=== PATIENT | female | born 1960 | race Caucasian/White ===

== ENCOUNTER 2021-01-03 14:49 | Emergency (ER) | payer OTHER ==
--- OUTSIDE RECORDS SUMMARY | 2021-01-03 14:57 | XMS REPORT | Continuity of Care Document ---
:1960 Author Organization [facility] t Address [address] [place] [address] Care Team Providers Name Role Phone Phuc MARTINEZ Primary Care Physician Italia MARTINEZ Attending Clinician Payers Payer Name Policy Type Policy Number Effective Date Expiration Date S ource Problems Condition Condition Condition Status Onset Resolution Last Treating Co mments Source Name Details Category Date Date Treatment Clinician Date Other Problem Active 2021-01-03 Memor ia specified 02:00:22 l diseases Other [place] of liver specified diseases of liver Active Problem 01/03/2021 Elayne Phuc Cystic Problem Active 2021-01-03 Memor ia disease of 02:00:22 l liver Cystic [place] disease of liver Active Problem 01/03/2021 Elayne Phuc Acute Problem Active 2021-01-03 Memor ia frontal 02:00:22 l sinusitis, Acute [place] nn unspecifie frontal d sinusitis, unspecifie d Active Problem 01/03/2021 Elayne Phuc Chronic Problem Active 2021-01-03 Yoel carley kidney 02:00:22 l disease, Chronic [place] nn stage 3 kidney (moderate) disease, stage 3 (moderate) Active Problem 01/03/2021 Elayne Phuc Encounter Problem Active 2021-01-03 Me moria for 02:00:22 l screening [place] for other Encounter suspected for endocrine screening disorder for other suspected endocrine disorder Active Problem 01/03/2021 Elayne Phuc Headache Problem Active 2021-01-03 Mem oria 02:00:22 l Headache Abhinav n Active Problem 01/03/2021 Elayne Puhc Acute Problem Active 2021-01-03 Memor ia upper 02:00:22 l respirator Acute [place]a nn y upper infection, respirator unspecifie y d infection, unspecifie d Active Problem 01/03/2021 Elayne Friend Encounter Problem Active 2021-01-03 Me moria for 02:00:22 l screening [place] for Encounter cardiovasc for ular screening disorders for cardiovasc ular disorders Active Problem 01/03/2021 Elayne Friend Essential Problem Active 2021-01-03 Me moria (primary) 02:00:22 l hypertensi Abihnav n on Essential (primary) hypertensi on Active Problem Elayne Friend Spinal Problem Active 2021-01-03 Memor ia stenosis, 02:00:22 l lumbar Spinal [place] region stenosis, lumbar region Active Problem 01/03/2021 Elayne Acostao Low back Problem Active 2021-01-03 Mem oria pain 02:00:22 l Low back Abhinav n pain Active Problem 01/03/2021 Elayne Friend Generalize Problem Active 2021-01-03 M emoria d 02:00:22 l abdominal [place] pain Generalize d abdominal pain Active Problem 01/03/2021 Elayne Acostao Radiculopa Problem Active 2021-01-03 M emoria thy, 02:00:22 l thoracolum Abhinav n bar region Radiculopa thy, thoracolum bar region Active Problem 01/03/2021 Elayne Acostao Gastro-eso Problem Active 2021-01-03 M emoria phageal 02:00:22 l reflux Tomas disease Gastro-eso without phageal esophagiti reflux s disease without esophagiti s Active Problem 01/03/2021 Elayne Friend do not use Problem Active 2021-01-03 M emoria 02:00:22 l do not [place] use Active Problem 01/03/2021 Elayne Acostao Obesity, Problem Active 2021-01-03 Mem oria unspecifie 02:00:22 l d Obesity, Abhinav n unspecifie d Active Problem 01/03/2021 Elayne Friend Body mass Problem Active 2021-01-03 Me moria index 02:00:22 l (BMI) Body Tomas 37.0-37.9, mass index adult (BMI) 37.0-37.9, adult Active Problem 01/03/2021 Elaynealex Teixeiracko Encounter Problem Active 2021-01-03 Me moria for 02:00:22 l screening [place] mammogram Encounter for for malignant screening neoplasm mammogram of breast for malignant neoplasm of breast Active Problem 01/03/2021 Elaynealex Teixeiracko Encounter Problem Active 2021-01-03 Il moria for 02:00:22 l gynecologi Abhinav n alecia Encounter examinatio for n gynecologi (general) alecia (routine) examinatio without n abnormal (general) findings (routine) without abnormal findings Active Problem 01/03/2021 Elayne Teixeiracko Encounter Problem Active 2021-01-03 Il moria for 02:00:22 l screening [place] for Encounter cervical for cancer screening for cervical cancer Active Problem 01/03/2021 Elayne Phuc Acute Problem Active 2021-01-03 Memor ia sinusitis, 02:00:22 l unspecifie Acute Mila nn d sinusitis, unspecifie d Active Problem 01/03/2021 Elayne Phuc Chronic Problem Active 2021-01-03 Yoel carley kidney 02:00:22 l disease, Chronic Mila nn unspecifie kidney d disease, unspecifie d Active Problem 01/03/2021 Elayne Phuc Foraminal Problem Active 2021-01-03 Il moria stenosis 02:00:22 l of lumbar [place] region Foraminal stenosis of lumbar region Active Problem 01/03/2021 Elayne Phuc Pain in Problem Active 2021-01-03 Yoel carley right 02:00:22 l ankle and Pain in Herm bry joints of right right foot ankle and joints of right foot Active Problem 01/03/2021 Elayne Phuc Cough Problem Active 2021-01-03 Memor ia 02:00:22 l Cough Tomas Active Problem 01/03/2021 Elayne Phuc Lumbar Problem Active 2021-01-03 Memor ia radiculopa 02:00:22 l thy, Lumbar [place] chronic radiculopa thy, chronic Active Problem 01/03/2021 Elayne Phuc URI due to Problem Active 2021-01-03 M emoria influenza 02:00:22 l URI due Tomas to influenza Active Problem 01/03/2021 Elayne Friend Acute Problem Active 2021-01-03 Memor ia pharyngiti 02:00:22 l s, Acute [place] unspecifie pharyngiti d s, unspecifie d Active Problem 01/03/2021 Elayne Friend Body mass Problem Active 2021-01-03 Me moria index 02:00:22 l (BMI) Body [place] 35.0-35.9, mass index adult (BMI) 35.0-35.9, adult Active Problem 01/03/2021 Elayne Friend Tobacco Problem Active 2021-01-03 Yoel carley abuse 02:00:22 l counseling Tobacco [facility] abuse counseling Active Problem 01/03/2021 Elayne Friend Anxiety Problem Active 2021-01-03 Yoel carley 02:00:22 l Anxiety [place] Active Problem 01/03/2021 Elayne Friend Dyslipidem Problem Active 2021-01-03 M emoria ia 02:00:22 l [place] Dyslipidem ia Active Problem Elayne Friend Smoking Problem Active 2021-01-03 Yoel carley 02:00:22 l Smoking T[place] Active Problem 01/03/2021 Elayne Friend Encounter Problem Active 2021-01-03 Me moria for HCV 02:00:22 l screening [place] test for Encounter low risk for HCV patient screening test for low risk patient Active Problem 01/03/2021 Elayne Friend Encounter Problem Active 2021-01-03 Me moria for 02:00:22 l screening [place] for HIV Encounter for screening for HIV Active Problem 01/03/2021 Elayne Friend Encounter Problem Active 2021-01-03 Me moria for 02:00:22 l general [place] adult Encounter medical for examinatio general n without adult abnormal medical findings examinatio n without abnormal findings Active Problem 01/03/2021 Elayne Friend BMI Problem Active 2021-01-03 Memor ia 36.0-36.9, 02:00:22 l adult BMI [place] 36.0-36.9, adult Active Problem 01/03/2021 Elayne Friend Obstructiv Problem Active 2021-01-03 M emoria e sleep 02:00:22 l apnea T[place] (adult) Obstructiv (pediatric e sleep ) apnea (adult) (pediatric ) Active Problem 01/03/2021 Elayne Friend Flu Problem Active 2021-01-03 Memor ia vaccine 02:00:22 l need Flu T[place] vaccine need Active Problem 01/03/2021 Elayne Friend Rhinorrhea Problem Active 2021-01-03 M emoria 02:00:22 l [place] Rhinorrhea Active Problem 01/03/2021 Elayne Friend Acute Problem Active 2021-01-03 Memor ia bronchitis 02:00:22 l , Acute [place] unspecifie bronchitis d , unspecifie d Active Problem 01/03/2021 Elayne Friend Refuses Problem Active 2021-01-03 Yoel carley tetanus, 02:00:22 l diphtheria Refuses Her [facility] , and tetanus, acellular diphtheria pertussis , and (Tdap) acellular vaccinatio pertussis n (Tdap) vaccinatio n Active Problem 01/03/2021 Elayne Freind shingles Problem Active 2021-01-03 Mem oria vaccine 02:00:22 l refused shingles Mila nn vaccine refused Active Problem 01/03/2021 Elayne Firend Spinal Diagnosis Active 2019-01-23 Mem oria stenosis, 02:21:26 l site Spinal Tomas unspecifie stenosis, d site unspecifie d Active Diagnosis 01/23/2019 Elayne Friend Tobacco Diagnosis Active 2017-02-14 Me moria use 02:00:56 l Tobacco [place] use Active Diagnosis 02/14/2017 Elayne Friend Shortness Problem Active 2021-01-03 Me moria of breath 02:00:22 l [place] Shortness of breath Active Problem 01/03/2021 Elayne Friend Other Problem Active 2021-01-03 Memor ia obesity 02:00:22 l due to Other [place] excess obesity calories due to excess calories Active Problem 01/03/2021 Elayne Friend Encounter Problem Active 2021-01-03 Me moria for 02:00:22 l screening [place] for lipid Encounter disorder for screening for lipid disorder Active Problem 01/03/2021 Elayne Friend Chronic Problem Active 2021-01-03 Yoel carley pain 02:00:22 l disorder Chronic Mila nn pain disorder Active Problem 01/03/2021 Elayne Teixeiracko Diabetes Problem Active 2021-01-03 Mem oria mellitus 02:00:22 l screening Diabetes [facility] mellitus screening Active Problem 01/03/2021 Elayne Teixeiracko Abnormal Diagnosis Active 2017 M emoria mammogram 02:00:24 l Abnormal Abhinav n mammogram Active Diagnosis 2017 Elaynealex Teixeiracko Breast Diagnosis Active 2017 Mem oria pain 02:00:24 l Breast [place] pain Active Diagnosis 2017 Elayne Teixeiracko Acute Diagnosis Active 2019-02-05 Mem oria midline 02:01:06 l thoracic Acute [place] back pain midline thoracic back pain Active Diagnosis 02/05/2019 Elayne Teixeiracko Morbid Problem Active 2021-01-03 Memor ia obesity 02:00:22 l due to Morbid [place] excess obesity calories due to excess calories Active Problem 01/03/2021 Elaynealex Teixeiracko Chronic Problem Active 2021-01-03 Yoel carley kidney 02:00:22 l disease Chronic Abhinav n (CKD) kidney stage disease G3a/A1, (CKD) moderately stage decreased G3a/A1, glomerular moderately filtration decreased rate (GFR) glomerular between filtration 45-59 rate (GFR) mL/min/1.7 between 3 square 45-59 meter and mL/min/1.7 albuminuri 3 square a meter and creatinine albuminuri ratio less a than 30 creatinine mg/g ratio less than 30 mg/g Active Problem 01/03/2021 Elaynealex Teixeiracko Other Problem Active 2021-01-03 Memor ia chronic 02:00:22 l pain Other [place] chronic pain Active Problem 01/03/2021 Elaynealex Teixeiracko Pain in Problem Active 2021-01-03 Yoel carley right 02:00:22 l shoulder Pain in Mila nn right shoulder Active Problem 01/03/2021 Elayne Phuc Hypertensi Problem Active 2016-04-29 M emoria on 03:00:55 l [place] Hypertensi on Active Problem 6 Elayne Friend Primary Problem Active 2021-01-03 Yoel carley osteoarthr 02:00:22 l itis of Primary Abhinav n right osteoarthr shoulder itis of right shoulder Active Problem 01/03/2021 Elayne Friend Chest pain Problem Active 2021-01-03 M emoria made worse 02:00:22 l by Chest T[place] breathing pain made worse by breathing Active Problem 01/03/2021 Elayne Friend Calculus Problem Active 2021-01-03 Mem oria of kidney 02:00:22 l Calculus Abhinav n of kidney Active Problem 01/03/2021 Elayne Friend Allergies, Adverse Reactions, Alerts Allergy Allergy Status Severity Reaction(s) Onset Inactive Treating Comm ents Source Name Type Date Date Clinician Codeine Propensi Active GI Methodi ty to Intolerance 12-31 adverse 00:00: Hospita reaction 00 l s to drug Penicill Propensi Active Rash Method i ins ty to 12-31 adverse 00:00: Hospita reaction 00 l s to drug Penicill Penicill Active Info Not Yoel carley amine amine Available 6-08 l 00:00: [place] 00 Iodine Iodine Active Info Not Memoria Available 6-08 l 00:00: [place] 00 Codeine Codeine Active Info Not 2019-05 Memori a Sulfate Sulfate Available 0-05 l 00:00: [place] 00 Family History Family Member Diagnosis Comments Start Date Stop Date Source Maternal grandmother Coronary artery [facility] Natural mother [facility]physema [facility] Social History Social Habit Start Date Stop Date Quantity Comments Source Exposure to Not sure [facility] SARS-CoV-2 (event) Hospit al History of tobacco Cigarette Smoker [facility] use [facility] Cigarettes smoked 2020-12-31 2020-12-[address] current (pack per 00:00:00 00:00:00 Hospita l day) - Reported Tobacco use and 2020-12-31 2020-12-31 Never used [facility] exposure 00:00:00 00:00:00 Hospital Alcohol intake 2020-12-31 2020-12-31 Current drinker [facility]o dist 00:00:00 00:00:00 of alcohol Hospital (finding) Tobacco Comment 2020-12-31 2020-12-31 Has tried quiting [facility] 00:00:00 00:00:00 with patches. Hospital Alcohol Comment 2020-12-31 2020-12-31 Seldom [facility] 00:00:00 00:00:00 Hospital UseDrugs: 2016-07-06 2016-07-06 [facility] 00:00:00 00:00:00 [birth year] [facility] 00:00:00 00:00:00 Hospital Smoking Status Start Date Stop Date Source Current every day smoker 2020-12-31 00:00:00 [facility] Medications Ordered Filled Start Stop Current Ordering Indication Dosage Frequency Signature Comments Components Source Medication Medication Date Date Medication? Clinician (SIG) Name Name Metoprolol Yes ELAYNE 1 tablet Me moria Tartrate 8-16 PHUC as needed l 02:01: [place] 14 Diovan Yes ELAYNE 1 tablet Memori a 8-16 PHUC l 02:01: T[place] 14 Zetia Yes ELAYNE 1 tablet Memoria 8-16 PHUC l 02:01: Omeprazole Yes ELAYNE 1 capsule M emoria 8-16 PHUC l 02:01: [place] Breo Yes ELAYNE 1 puff Memoria Ellipta 6-22 PHUC l 00:00: Baclofen 0 Yes ELAYNE 1 tablet Yoel carley 6-08 PHUC as needed l 00:00: 00 Baclofen 0 Yes ELAYNE 1 tablet Yoel carley 1-04 PHUC with food l 00:00: or milk Contrave 2019-1 Yes ELAYNE 1 tab(s) Yoel carley 2-04 PHUC l 00:00: Zetia 2019-1 Yes ELAYNE 1 tablet Memoria 0-07 PHUC l 02:01: [place] 49 Omeprazole 2019-1 Yes ELAYNE 1 capsule M emoria 0-07 PHUC l 02:01: [place] 49 Tramadol 2019-0 Yes ELAYNE 1 tablet Yoel carley HCl 6-03 PHUC as needed l 00:00: 00 Omeprazole 2019-0 Yes ELAYNE 1 capsule M emoria 5-05 PHUC l 02:05: [place] 59 Diovan 2019-0 Yes ELAYNE 1 tablet Memori a 2-05 PHUC l 03:01: [place] 18 Imitrex 2019-0 Yes ELAYNE 1 tablet Memor ia 2-05 PHUC as needed l 03:01: Guaifenesin 2020-0 Yes ELAYNE 1 tablet M emoria 1-03 PHUC as needed l 00:00: Chantix 2020-0 Yes ELAYNE as Memoria Starting 1-03 PHUC directed l Month Lefty 00:00: Zithromax 2020-0 Yes ELAYNE as Memoria Z-Lefty 1-03 PHUC directed l 00:00: Tramadol 2020-0 Yes ELAYNE 2 tablet Yoel carley HCl 1-03 PHUC as needed l 00:00: Tramadol 2019-1 Yes ELAYNE 2 tablet Yoel carley HCl 2-04 PHUC as needed l 00:00: Ventolin 2019-1 Yes ELAYNE 2 puffs as Me moria HFA 1-04 PHUC needed l 00:00: Levofloxaci 2019-1 Yes ELAYNE 1 tablet M emoria n 1-04 PHUC l 00:00: Tramadol 2019-1 Yes ELAYNE 2 tablet Yoel carley HCl 0-04 PHUC as needed l 00:00: Benzonatate 2019-1 Yes ELAYNE 1 capsule Memoria 0-04 PHUC as needed l 00:00: Tramadol 2019-0 Yes ELAYNE 1 tablet Yoel carley HCl 9-25 PHUC as needed l 02:13: Trazodone 2019-0 Yes ELAYNE 1 tablet Mem oria HCl 7-26 PHUC l 00:00: Trazodone 2019-0 Yes ELAYNE 1 tablet Mem oria HCl 7-26 PHUC l 00:00: Mucinex D 2018-1 Yes R 2 tablets Mem oria 1-06 Zinactive as needed l 00:00: Cold & 2018-1 Yes R 1 tablet Memoria Allergy 1-06 Zinactive as needed l 00:00: Gabapentin 2018-1 Yes ELAYNE 1 capsule M emoria 1-06 PHUC l 00:00: Gabapentin 2018-1 Yes ELAYNE 1 capsule M emoria 1-06 PHUC l 00:00: Tramadol 2018-1 Yes R one tab Memori a 1-06 Zinactive l 00:00: Claritin 2018- Yes R 1 tablet Memor ia 1-06 Zinactive l 00:00: Gabapentin 2018-0 Yes ELAYNE 1 capsule M emoria 8-09 PHUC l 00:00: Tramadol 2018-0 Yes JYOTIBEN one tab Me moria 7-13 CHOWDHURY l 00:00: Gabapentin 2018-0 Yes JYOTIBEN 1 capsule Memoria 7-02 CHOWDHURY l 02:01: Zyban 2018-0 Yes ELAYNE 1 tab Memoria 6-13 PHUC l 00:00: Zyban 2018-0 Yes ELAYNE 1 tab Memoria 6-13 PHUC l 00:00: REFERRAL TO 2018-0 Yes JYOTIBEN as Me moria NEUROLOGIST 1-06 [facility]OW[facility] directed l 03:04: Tramadol 2016-05 Yes JYOTIBEN one tab Me moria 1-09 [facility]OWDHURY l 00:00: Diovan 2016-05 Yes JYOTIBEN 1 tablet Mem oria 0-16 CHOWDHURY l 02:06: Metoprolol 2016-05 Yes JYOTIBEN 1 tablet Memoria Tartrate 0-16 [facility]OWDHURY as needed l 02:06: Gabapentin 2016-05 Yes JYOTIBEN 1 capsule Memoria 0-16 CHOWDHURY l 02:06: Imitrex 2016-05 Yes JYOTIBEN 1 tablet Me moria 0-16 [facility]OW[facility]URY as needed l 02:06: Zetia 2016-05 Yes JYOTIBEN 1 tablet Yoel carley 0-16 CHOWDHURY l 02:06: Omeprazole 2016-05 Yes JYOTIBEN 1 capsule Memoria 0-16 [facility]OW[facility]URY l 02:06: Claritin 2016-05 Yes JYOTIBEN 1 tablet M emoria 0-10 CHOW[facility]URY l 00:00: Zithromax 2016-05 Yes JYOTIBEN 2 tablets Memoria Z-Lefty 0-10 CHOWDHURY on the l 00:00: first day, then 1 tablet daily for 4 days Mucinex 2016-05 Yes JYOTIBEN 1 tablet Me moria 0-10 [facility]OW[facility]Y as needed l 00:00: Tramadol 2017-0 Yes JYOTIBEN one tab Me moria 9-02 [facility]OW[facility]URY l 00:00: Tramadol 2017-0 Yes JYOTIBEN 1 tablet M emoria HCl 7-08 CHOWDHURY l 02:05: 46 Imitrex 2017-0 Yes JYOTIBEN 1 tablet Me moria 6-06 [facility]OW[facility]Y as needed l 00:00: Amitriptyli 2017-0 Yes JYOTIBEN 1 tablet Memoria ne HCl 3-30 [facility]OW[facility]URY l 00:00: Zetia 2017-0 Yes JYOTIBEN 1 tablet Yoel carley 3-30 CHOWDHURY l 00:00: REFERRAL TO 0 Yes JYOTIBEN as Me moria NEUROLOGIST 3-30 [facility]OW[facility]Y directed l 00:00: ProAir HFA 0 Yes JYOTIBEN 2 puffs as Memoria 3-07 [facility]OW[facility]URY needed l 00:00: Biaxin 2017-0 Yes JYOTIBEN 1 tablet Mem oria 3-07 COHWDHURY l 00:00: Mucinex 2017-0 Yes JYOTIBEN 1 tablet Me moria 3-07 CHOW[facility]URY as needed l 00:00: Tessalon 2017-0 Yes JYOTIBEN 1 capsule Memoria Perles 3-07 [facility]OW[facility]URY as needed l 00:00: ProAir HFA 0 Yes JYOTIBEN 2 puffs as Memoria 3-07 [facility]OWDHURY needed l 00:00: REFERRAL TO 0 Yes JYOTIBEN as Me moria PAIN 1-03 [facility]OW[facility]Y directed l MANAGMENT 00:00: REFERRAL TO 0 Yes JYOTIBEN as Me moria GASTROENTER 8-03 [facility]OW[facility]Y directed l OLOGY 00:00: REFER 0 Yes JYOTIBEN as Memoria PATIENT TO 8-03 [facility]OW[facility] directed l UROLOGY 00:00: Omeprazole 2015-0 Yes JYOTIBEN 1 capsule Memoria 7-19 [facility]OW[facility]Y l 00:00: Refer 2015-0 Yes JYOTIBEN as Memoria Patient to 4-06 [facility]OW[facility]Y directed l pain 00:00: Orthopedics 0 Yes JYOTIBEN as Me moria consult and 4-06 [facility]OW[facility]Y directed l referral 00:00: 00 Refer 2015-1 Yes JYOTIBEN as Memoria Patient to 2-18 [facility]OW[facility]Y directed l pain 00:00: Tomas management 00 Diovan 2015-0 Yes JYOTIBEN 1 tablet Mem oria 9-30 [facility]OWDHURY l 00:00: Tramadol 2015-0 Yes JYOTIBEN 1 tablet M emoria HCl 9-30 [facility]OWDHURY l 00:00: Gabapentin 2015-0 Yes JYOTIBEN 1 capsule Memoria 9-30 [facility]OW[facility]URY l 00:00: 00 Metoprolol 2014-0 Yes JYOTIBEN 1 tablet Memoria Tartrate 9-30 [facility]OW[facility]URY as needed l 00:00: 00 Immunizations Ordered Immunization Filled Immunization Date Status Commen ts Source Name Name Influenza 2020-01-04 Completed [facility] 00:00:00 [place] FLU VACCINE NO 2019-03-05 Completed [facility] PRESERV 3 & > 00:00:00 [place] Vital Signs Vital Name Observation Time Observation Value Comments Source Heart rate 2020-12-31 12:45:00 49 /min [facility] Respiratory rate 2020-12-31 12:45:00 15 /min [facility] Oxygen saturation in 2020-12-31 12:45:00 98 /[facility] Arterial blood by Pulse oximetry Systolic blood 2020-12-31 12:30:00 163 mm[Hg] [facility] pressure Diastolic blood 2020-12-31 12:30:00 80 mm[Hg] [facility] pressure Body temperature 2020-12-31 10:38:00 36.33 [facility]ol [facility] Body height 2020-12-31 10:35:00 160 cm [facility] Body weight 2020-12-31 10:35:00 90.719 kg [facility] BMI 2020-12-31 10:35:00 35.43 kg/m2 [facility] Diastolic (mm Hg) 2020-10-27 15:00:00 [facility] Systolic (mm Hg) 2020-10-27 [facility]:00[facility] 2020-10-27 15:00:00 98.5 F [facility] Heart Rate 2020-10-27 15:00:00 [facility] Diastolic (mm Hg) 2020-10-07 21:15:00 Mem orial [place] Systolic (mm Hg) 2020-10-07 21:15:00 Yoel rial [place] Temperature Oral (F) 2020-10-07 21:15:00 98.1 F [facility] Weight 2020-10-07 21:15:00 [facility] Heart Rate 2020-10-07 21:15:00 [facility] [place] Diastolic (mm Hg) 2020-05-05 18:30:00 Mem orial [place] Systolic (mm Hg) 2020-05-05 18:30:00 Yoel rial [place] Temperature Oral (F) 2020-05-05 18:30:00 98.5 F [facility] Heart Rate 2020-05-05 18:30:00 [facility] Diastolic (mm Hg) 2020-04-04 22:00:00 Mem orial [place] Systolic (mm Hg) 2020-04-04 22:00:00 Yoel rial [place] Temperature Oral (F) 2020-04-04 22:00:00 98.0 F [facility] Weight 2020-04-04 22:00:00 [facility] [place] Heart Rate 2020-04-04 22:00:00 [facility] [place] Diastolic (mm Hg) 2020-02-04 21:30:00 Mem orial [place] Systolic (mm Hg) 2020-02-04 21:30:00 Yoel rial [place] Temperature Oral (F) 2020-02-04 21:30:00 98.0 F [facility] Weight 2020-02-04 21:30:00 [facility] [place] Heart Rate 2020-02-04 21:30:00 [facility] Diastolic (mm Hg) 2020-01-04 17:45:00 Mem orial [place] Systolic (mm Hg) 2020-01-04 17:45:00 Yoel rial [place] Temperature Oral (F) 2020-01-04 17:45:00 98.0 F [facility] Weight 2020-01-04 17:45:00 [facility] Heart Rate 2020-01-04 17:45:00 [facility] [place] Diastolic (mm Hg) 2019-10-04 21:15:00 Mem orial [place] Systolic (mm Hg) 2019-10-04 21:15:00 Yoel rial [place] Temperature Oral (F) 2019-10-04 21:15:00 98.0 F [facility] Weight 2019-10-04 21:15:00 [facility] [place] Heart Rate 2019-10-04 21:15:00 [facility] Diastolic (mm Hg) 2019-09-03 20:30:00 Mem orial [place] Systolic (mm Hg) 2019-09-03 20:30:00 Yoel rial [place] Temperature Oral (F) 2019-09-03 20:30:00 96.4 F [facility] Weight 2019-09-03 20:30:00 [facility] [place] Heart Rate 2019-09-03 20:30:00 [facility] [place] Diastolic (mm Hg) 2019-06-04 21:30:00 Mem orial [place] Systolic (mm Hg) 2019-06-04 21:30:00 Yoel rial [place] Temperature Oral (F) 2019-06-04 21:30:00 98.2 F [facility] Weight 2019-06-04 21:30:00 [facility] [place] Heart Rate 2019-06-04 21:30:00 [facility] [place] Diastolic (mm Hg) 2019-05-04 20:00:00 Mem orial [place] Systolic (mm Hg) 2019-05-04 20:00:00 Yoel rial [place] Temperature Oral (F) 2019-05-04 20:00:00 98.2 F [facility] Weight 2019-05-04 20:00:00 [facility] [place] Heart Rate 2019-05-04 20:00:00 [facility] Diastolic (mm Hg) 2019-04-04 22:00:00 Mem orial [place] Systolic (mm Hg) 2019-04-04 22:00:00 Yoel rial [place] Temperature Oral (F) 2019-04-04 22:00:00 98.0 F [facility] [place] Weight 2019-04-04 22:00:00 [facility] Heart Rate 2019-04-04 22:00:00 [facility] [place] Diastolic (mm Hg) 2019-03-13 21:45:00 Mem orial [place] Systolic (mm Hg) 2019-03-13 21:45:00 Yoel rial [place] Temperature Oral (F) 2019-03-13 21:45:00 98.0 F [facility] [place] Weight 2019-03-13 21:45:00 [facility] [place] Heart Rate 2019-03-13 21:45:00 [facility] [place] Diastolic (mm Hg) 2019-03-05 21:30:00 Mem orial [place] Systolic (mm Hg) 2019-03-05 21:30:00 Yoel rial [place] Temperature Oral (F) 2019-03-05 21:30:00 98.2 F [facility] [place] Weight 2019-03-05 21:30:00 [facility] [place] Heart Rate 2019-03-05 21:30:00 [facility] Diastolic (mm Hg) 2019-02-02 21:00:00 Mem orial [place] Systolic (mm Hg) 2019-02-02 21:00:00 Yoel rial [place] Temperature Oral (F) 2019-02-02 21:00:00 98.1 F [facility] Weight 2019-02-02 21:00:00 [facility] [place] Heart Rate 2019-02-02 21:00:00 [facility] [place] Diastolic (mm Hg) 2019-01-08 21:15:00 Mem orial [place] Systolic (mm Hg) 2019-01-08 21:15:00 Yoel rial [place] Temperature Oral (F) 2019-01-08 21:15:00 98.1 F [facility] Weight 2019-01-08 21:15:00 [facility] [place] Heart Rate 2019-01-08 21:15:00 [facility] [place] Diastolic (mm Hg) 2018-04-13 20:00:00 Mem orial [place] Systolic (mm Hg) 2018-04-13 20:00:00 Yoel rial [place] Temperature Oral (F) 2018-04-13 20:00:00 98.2 F [facility] Weight 2018-04-13 20:00:00 [facility] [place] Heart Rate 2018-04-13 20:00:00 [facility] [place] Diastolic (mm Hg) 2018-03-07 20:00:00 Mem orial [place] Systolic (mm Hg) 2018-03-07 20:00:00 Yoel rial [place] Temperature Oral (F) 2018-03-07 20:00:00 98.0 F [facility] Weight 2018-03-07 20:00:00 [facility] [place] Heart Rate 2018-03-07 20:00:00 [facility] [place] Diastolic (mm Hg) 2017-10-28 16:15:00 Mem orial [place] Systolic (mm Hg) 2017-10-28 16:15:00 Yoel rial [place] Temperature Oral (F) 2017-10-28 16:15:00 98.0 F [facility] [place] Weight 2017-10-28 16:15:00 [facility] [place] Heart Rate 2017-10-28 16:15:00 [facility] [place] Diastolic (mm Hg) 2017-10-12 17:45:00 Mem orial [place] Systolic (mm Hg) 2017-10-12 17:45:00 Yoel rial [place] Temperature Oral (F) 2017-10-12 17:45:00 97.9 F [facility] [place] Weight 2017-10-12 17:45:00 [facility] Heart Rate 2017-10-12 17:45:00 [facility] Diastolic (mm Hg) 2017-02-08 21:30:00 [facility] Systolic (mm Hg) 2017-02-08 21:30:00 [facility] Temperature Oral (F) 2017-02-08 21:30:00 97.9 F [facility] Weight 2017-02-08 21:30:00 [facility] Heart Rate 2017-02-08 21:30:00 [facility] Diastolic (mm Hg) 2016-12-09 17:00:00 [facility] Systolic (mm Hg) 2016-12-09 17:00:00 [facility] Temperature Oral (F) 2016-12-09 17:00:00 98.0 F [facility] Weight 2016-12-09 17:00:00 [facility] Heart Rate 2016-12-09 17:00:00 [facility] Diastolic (mm Hg) 2016-12-02 17:00:00 [facility] Systolic (mm Hg) 2016-12-02 17:00:00 [facility] Temperature Oral (F) 2016-12-02 17:00:00 97.9 F [facility] Weight 2016-12-02 17:00:00 [facility] Rate 2016-12-02 17:00:00 [facility] Diastolic (mm Hg) 2016-10-05 17:15:00 [facility] Systolic (mm Hg) 2016-10-05 17:15:00 [facility] Temperature Oral (F) 2016-10-05 17:15:00 98.0 F [facility] Weight 2016-10-05 17:15:00 [facility] Heart Rate 2016-10-05 17:15:00 [facility] Diastolic (mm Hg) 2016-07-29 20:30:00 [facility] Systolic (mm Hg) 2016-07-29 20:30:00 [facility] Temperature Oral (F) 2016-07-29 20:30:00 98.0 F [facility] Weight 2016-07-29 20:30:00 [facility] Heart Rate 2016-07-29 20:30:00 [facility] Diastolic (mm Hg) 2016-07-06 18:15:00 [facility] Systolic (mm Hg) 2016-07-06 18:15:00 [facility] Temperature Oral (F) 2016-07-06 18:15:00 98.0 F [facility] Weight 2016-07-06 18:15:00 [facility] Heart Rate 2016-07-06 18:15:00 [facility] Diastolic (mm Hg) 2016-05-04 19:30:00 [facility] Systolic (mm Hg) 2016-05-04 19:30:00 [facility] Temperature Oral (F) 2016-05-04 19:30:00 98.0 F [facility] Weight 2016-05-04 19:30:00 [facility] Heart Rate 2016-05-04 19:30:00 [facility] Procedures Procedure Date / Time Performing Clinician Source Performed ECG ED PRELIMINARY 2020-12-31 13:25:50 [facility] INTERPRETATION TROPONIN 2020-12-31 13:13:00 [facility] Daniel XR CHEST 1 VW PORTABLE 2020-12-31 12:36:26 [facility] Daniel HC COMPLETE BLD COUNT 2020-12-31 10:47:00 [facility] W/AUTO DIFF Christopher COMPREHENSIVE METABOLIC 2020-12-31 10:47:00 [facility] PANEL Christopher TROPONIN 2020-12-31 10:47:00 [facility] NATRIURET[facility] PEPTIDE 2020-12-31 10:47:00 [facility] Christjeremyer PARTIAL THROMBOPLASTIN 2020-12-31 10:47:00 [facility] TIME (PTT) [place] PROTHROMBIN TIME WITH INR 2020-12-31 10:47:00 [facility] Christopher ESTIMATED GFR 2020-12-31 10:47:00 [facility] ECG 12-LEAD 2020-12-31 10:39:08 [facility] Plan of Care Planned Activity Planned Date Details Comments Source Future Scheduled Test COVID-19 VACCINE (1) [facility] [code = COVID-19 VACCINE (1)] Future Scheduled Test Hepatitis C screening [facility] (procedure) [code = 286846582] Future Scheduled Test Screening for malignant [facility] neoplasm of cervix (procedure) [code = 427350495] Future Scheduled Test BREAST CANCER SCREENING [facility] [code = BREAST CANCER SCREENING] Future Scheduled Test COLONOSCOPY SCREENING [facility] [code = COLONOSCOPY SCREENING] Future Scheduled Test SHINGLES VACCINES (#1) [facility] [code = SHINGLES VACCINES (#1)] Future Scheduled Test INFLUENZA VACCINE [code [facility] = INFLUENZA VACCINE] Encounters Start End Encounter Admission Attending Care Care Encounter Source Date/Time Date/Time Type Type Clinicians Facility Department ID 2020-12-31 2020-12-31 Outpatient [facility] [id number] eClinic 15:09:00 15:09:00 AND AGING AGING [facility] 2020-12-31 2020-12-31 Emergency [facility], 1.2.840.1 [id number] Methodi 06:29:00 09:31:[address] 3.430.2.7 Hospit a .3.321369 l .8 2020-12-31 2020-12-31 Emergency [facility] [id number] [place] [address] 00:00:00 00:00:[address] [facility] [address] 2020-12-31 2020-12-31 Travel 1.2.840.1 [id number] Methodi 00:00:00 00:00:[address] 3.430.2.7 0.2.7.3.698 [facility] .3.480853 084.8 l .8 2020-10-27 2020-10-27 Outpatient [facility] [id number] eClinic 10:00:00 10:00:00 AND AGING AGING [facility] 2020-10-07 2020-10-07 Outpatient Elayne Holly [id number] eClinic 16:15:00 16:15:00 Phuc brown M.D P.A P.A 2020-10-06 2020-10-06 Outpatient [facility] [id number] eClinic 10:38:00 10:38:00 AND AGING AGING [facility] 2020-06-13 2020-06-13 Outpatient Elayne Holly [id number] eClinic 13:29:00 13:29:00 Phuc brown M.D P.A P.A 2020-06-12 2020-06-12 Outpatient [facility] [id number] eClinic 18:31:00 18:31:00 AND AGING AGING [facility] 2020-05-05 2020-05-05 Outpatient Elayne Holly [id number] eClinic 12:30:00 12:30:00 Phuc brown M.D P.A P.A 2020-04-13 2020-04-13 Outpatient Elayne Holly [id number] eClinic 08:47:00 08:47:00 Phuc brown M.D P.A P.A 2020-04-13 2020-04-13 Outpatient Elayne Holly [id number] eClinic 08:47:00 08:47:00 Phuc brown M.D P.A P.A 2020-04-13 2020-04-13 Outpatient Elaynealex Holly [id number] eClinic 08:44:00 08:44:00 Phuc brown M.D P.A P.A 2020-04-13 2020-04-13 Outpatient Elayne Elayne [id number] eClinic 08:44:00 08:44:00 Phuc brown M.D P.A P.A 2020-04-04 2020-04-04 Outpatient Elayne Holly [id number] eClinic 16:00:00 16:00:00 Phuc brown M.D P.A P.A 2020-02-04 2020-02-04 Outpatient Elayne Holly [id number] eClinic 16:30:00 16:30:00 Phuc brown M.D P.A P.A 2020-01-04 2020-01-04 Outpatient Elayne Holly [id number] eClinic 13:00:00 13:00:00 Phuc brown M.D P.A P.A 2020-01-04 2020-01-04 Outpatient Elayne Holly [id number] eClinic 12:45:00 12:45:00 Phuc brown M.D P.A P.A 2019-12-20 2019-12-20 Outpatient Elaynealex Holly [id number] eClinic 11:32:00 11:32:00 Phuc brown M.D P.A P.A 2019-10-04 2019-10-04 Outpatient [facility] [id number] eClinic 16:15:00 16:15:00 AND AGING AGING [facility] 2019-09-03 2019-09-03 Outpatient [facility] [id number] eClinic 15:30:00 15:30:00 AND AGING AGING [facility] 2019-06-29 2019-06-29 Outpatient Elayne Holly [id number] eClinic 04:21:00 04:21:00 Phuc brown M.D P.A P.A 2019-06-14 2019-06-14 Outpatient Elayne Holly [id number] eClinic 09:23:00 09:23:00 Phuc brown M.D P.A P.A 2019-06-04 2019-06-04 Outpatient Elayne Holly [id number] eClinic 15:30:00 15:30:00 Phuc brown M.D P.A P.A 2019-05-27 2019-05-27 Outpatient Elaynealex Holly [id number] eClinic 13:53:00 13:53:00 Phuc brown M.D P.A P.A 2019-05-27 2019-05-27 Outpatient Elaynealex Holly [id number] eClinic 13:53:00 13:53:00 Phuc brown M.D P.A P.A 2019-05-06 2019-05-06 Outpatient Elayne Holly [id number] eClinic 18:27:00 18:27:00 Phuc brown M.D P.A P.A 2019-05-04 2019-05-04 Outpatient Elayne Holly [id number] eClinic 14:14:00 14:14:00 Phuc brown M.D P.A P.A 2019-05-04 2019-05-04 Outpatient Elaynealex Holly [id number] eClinic 14:02:00 14:02:00 Phuc brown M.D P.A P.A 2019-05-04 2019-05-04 Outpatient Elaynealex العليna [id number] eClinic 14:00:00 14:00:00 Phuc brown M.D P.A P.A 2019-04-04 2019-04-04 Outpatient Elayne Elayne [id number] eClinic 16:00:00 16:00:00 Phuc brown M.D P.A P.A 2019-03-18 2019-03-18 Outpatient Elayne Elayne [id number] eClinic 09:09:00 09:09:00 Phuc brown M.D P.A P.A 2019-03-13 2019-03-13 Outpatient Elayne Elayne [id number] eClinic 15:45:00 15:45:00 Phuc brown M.D P.A P.A 2019-03-13 2019-03-13 [facility] [id number] eClinic 15:45:00 15:45:00 Phuc brown M.D P.A P.A 2019-03-05 2019-03-05 [facility] [id number] eClinic 15:45:00 15:45:00 Phuc brown M.D P.A P.A 2019-03-05 2019-03-05 [facility] [id number] eClinic 15:30:00 15:30:00 Phuc brown M.D P.A P.A 2019-02-04 2019-02-04 [facility] [id number] eClinic 19:54:00 19:54:00 Phuc brown M.D P.A P.A 2019-02-02 2019-02-02 [facility] [id number] eClinic 16:00:00 16:00:00 Phuc brown M.D P.A P.A 2019-02-02 2019-02-02 [facility] [id number] eClinic 15:57:00 15:57:00 Phuc brown M.D P.A P.A 2019-02-02 2019-02-02 [facility] [id number] eClinic 15:30:00 15:30:00 Phuc brown M.D P.A P.A 2019-01-09 2019-01-09 [facility] [id number] eClinic 23:28:00 23:28:00 Phuc brown M.D P.A P.A 2019-01-09 2019-01-09 [facility] [id number] eClinic 23:27:00 23:27:00 Phuc brown M.D P.A P.A 2019-01-09 2019-01-09 [facility] [id number] eClinic 06:52:00 06:52:00 Phuc brown M.D P.A P.A 2019-01-08 2019-01-08 Outpatient Elayne Holly [id number] eClinic 16:15:00 16:15:00 Phuc brown M.D P.A P.A 2019-01-04 2019-01-04 Outpatient Elayne Holly [id number] eClinic 14:17:00 14:17:00 Phuc brown M.D P.A P.A 2018-11-24 2018-11-24 Outpatient Elayne Holly [id number] eClinic 13:54:00 13:54:00 Phuc brown M.D P.A P.A 2018-10-26 2018-10-26 Outpatient Elayne Holly [id number] eClinic 13:53:00 13:53:00 Phuc brown M.D P.A P.A 2018-09-26 2018-09-26 Outpatient [facility]ILY AND [id number] eClinic 16:01:00 16:01:00 AND AGING AGING [facility] 2018-09-20 2018-09-20 Outpatient Elayne Holly [id number] eClinic 16:11:00 16:11:00 Phuc brown M.D P.A P.A 2018-08-22 2018-08-22 Outpatient Elayne Holly [id number] eClinic 13:00:00 13:00:00 Phuc brown M.D P.A P.A 2018-08-21 2018-08-21 Outpatient Elaynealex Holly [id number] eClinic 14:31:00 14:31:00 Phuc brown M.D P.A P.A 2018-08-15 2018-08-15 Outpatient [facility] AND [id number] eClinic 09:20:00 09:20:00 AND AGING AGING [facility] 2018-07-27 2018-07-27 Outpatient Elayne Holly [id number] eClinic 12:27:00 12:27:00 Phuc brown M.D P.A P.A 2018-06-13 2018-06-13 Outpatient Elayne Holly [id number] eClinic 12:51:00 12:51:00 Phuc brown M.D P.A P.A 2018-06-13 2018-06-13 Outpatient Elayne Holly [id number] eClinic 12:50:00 12:50:00 Phuc brown M.D P.A P.A 2018-05-29 2018-05-29 Outpatient Elayne Holly [id number] eClinic 14:55:00 14:55:00 Phuc brown M.D P.A P.A 2018-04-13 2018-04-13 Outpatient Elayne Holly [id number] eClinic 15:00:00 15:00:00 Phuc brown M.D P.A P.A 2018-03-07 2018-03-07 Outpatient Elayne Holly [id number] eClinic 15:00:00 15:00:00 Phuc brown M.D P.A P.A 2018-03-02 2018-03-02 Outpatient [facility] [id number] eClinic 20:41:00 20:41:00 AND AGING AGING [facility] 2017-12-08 2017-12-08 Outpatient Elayne Holly [id number] eClinic 09:13:00 09:13:00 Phuc brown M.D P.A P.A 2017-11-18 2017-11-18 Outpatient Elayne Holly [id number] eClinic 11:50:00 11:50:00 Phuc brown M.D P.A P.A 2017-10-28 2017-10-28 Outpatient Elayne Holly [id number] eClinic 11:15:00 11:15:00 Phuc brown M.D P.A P.A 2017-10-12 2017-10-12 Outpatient Elayne Holly [id number] eClinic 12:45:00 12:45:00 Phuc brown M.D P.A P.A 2017-10-06 2017-10-06 Outpatient [facility] [id number] eClinic 14:03:00 14:03:00 Phuc brown M.D P.A P.A 2017-02-11 2017-02-11 Outpatient [facility] [id number] eClinic 16:25:00 16:25:00 Phuc brown M.D P.A P.A 2017-02-08 2017-02-08 Outpatient [facility] [id number] eClinic 15:30:00 15:30:00 Phuc brown M.D P.A P.A 2017-02-05 2017-02-05 Outpatient [facility] [id number] eClinic 08:56:00 08:56:00 Phuc brown M.D P.A P.A 2017-02-03 2017-02-03 Outpatient [facility] [id number] eClinic 20:17:00 20:17:00 Phuc brown M.D P.A P.A 2017-02-02 2017-02-02 Outpatient [facility] [id number] eClinic 07:49:00 07:49:00 Phuc brown M.D P.A P.A 2016-12-09 2016-12-09 Outpatient [facility] [id number] eClinic 12:00:00 12:00:00 Phuc brown M.D P.A P.A 2016-12-02 2016-12-02 Outpatient [facility] [id number] eClinic 15:52:00 15:52:00 Phuc brown M.D P.A P.A 2016-12-02 2016-12-02 Outpatient [facility] [id number] eClinic 12:00:00 12:00:00 Phuc brown M.D P.A P.A 2016-11-26 2016-11-26 Outpatient [facility] [id number] eClinic 09:47:00 09:47:00 Phuc brown M.D P.A P.A 2016-10-07 2016-10-07 Outpatient Elayne Elayne [id number] eClinic 20:50:00 20:50:00 Phuc brown M.D P.A P.A 2016-10-05 2016-10-05 Outpatient Elayne Elayne [id number] eClinic 12:15:00 12:15:00 Phuc brown M.D P.A P.A 2016-10-02 2016-10-02 Outpatient Elayne Elayne [id number] eClinic 12:42:00 12:42:00 Phuc rbown M.D P.A P.A 2016-07-29 2016-07-29 Outpatient Elayne Elayne [id number] eClinic 15:30:00 15:30:00 Phuc brown M.D P.A P.A 2016-07-06 2016-07-06 appointmen nullFlavo Elayne [id number] [facility] 14:03:00 14:03:00 reza Friend MD [id number] Mila traylor [id number] 2016-07-06 2016-07-06 Outpatient Elayne Elayne [id number] eClinic 13:15:00 13:15:00 Phuc brown M.D P.A P.A 2016-07-06 2016-07-06 Outpatient Elayne Elayne [id number] eClinic 08:03:00 08:03:00 Phuc Friend MD alW orks MD 2016-05-04 2016-05-04 Outpatient Elayne Elayne [id number] eClinic 14:30:00 14:30:00 Phuc brown M.D P.A P.A 2016-04-28 2016-04-28 appointmen nullFlavo Elayne [id number] [facility] 16:56:00 16:56:00 reza Friend MD [id number] Mila traylor [id number] 2016-04-28 2016-04-28 appointmen Cory Holly [id number] [facility] 16:56:00 16:56:00 reza Friend MD [id number] Mila nn [id number] 2016-04-28 2016-04-28 Outpatient Elayne Holly [id number] eClinic 10:56:00 10:56:00 Phuc Friend MD alW orks MD Results Test Description Test Time Test Comments Results Result Comments Source ECG 12 lead 2021-01-01 03:14:24 Test Item Value Reference Range Interpretation Comme nts Ventricular rate (test code = 253) Atrial rate (test code = 255) CT interval (test code = 266) QRSD interval (test code = 260) QT interval (test code = 264) QTC interval (test code = 265) P axis 1 (test code = 267) QRS axis 1 (test code = 268) T wave axis (test code = 270) EKG impression (test code = 273) Normal sinus rhythm-Normal ECG-No [facility]s available[facility] Preliminary Interpretation - Not an [id number] 13:25:50Beata Echavarria MD 12/31/2020 8:52 [facility] ED Preliminary Interpretation - Not an OrderPerformed by: Beata Echavarria MDAuthorized by: Beata Echavarria MD ECG reviewed by ED Physician in the absence ofa change control coordinator: yes Interpretation: Interpretation: normal Rate: ECG rate: 61 ECG rate assessment: normal Rhythm: Rhythm: sinus rhythm Ectopy: Ectopy: none QRS: QRS axis: NormalST segments: ST segments: NormalT waves: T waves: flattening Flattening: [facility] 1 Vw [id number] 12:38:01EXAMINATION: XR CHEST 1 VW PORTABLE CLINICAL HISTORY: 60 years Female cp COMPARISON: None. IMPRESSION: The cardiomediastinal silhouette is not enlarged The lungs are clear The osseous structures are within normal limits. . . Hm Interface, Radiology Results Incoming - 12/31/2020 7:41 AM CDT EXAMINATION: XR CHEST 1 VW PORTABLECLINICALHISTORY: 60 years Female cpCOMPARISON: None.IMPRESSION:The cardiomediastinal silhouette is not enlarged The lungs are clear The osseous structures are within normal limits... [facility]
[2021-01-03 16:36] LABS: Protime INR 0.93
[2021-01-03 16:38] LABS: Absolute Lymphocytes (CBC) 1.6 K/uL (0.7-4.9); Basophils % 0.4 % (0-1.3); Hematocrit 43.3 % (36.0-45.0); Lymphocytes % 14.6 % (15.3-44.8); MPV 8.6 fL (7.6-11.3); RBC Red Blood Cell Count 4.69 M/uL (3.86-4.86)
[2021-01-03 16:59] LABS: Sodium Level 141 mmol/L (136-145)
[2021-01-03 17:12] LABS: BUN Blood Urea Nitrogen 21 mg/dL (7-18); Bicarbonate 23 mmol/L (21-32); Glucose Level 108 mg/dL (74-106)
[2021-01-03 17:13] LABS: ALT/SGPT 78 U/L (12-78); AST/SGOT 134 U/L (15-37); Albumin 3.7 g/dL (3.4-5.0); Alkaline Phosphatase 109 U/L (45-117); Bilirubin Direct 0.1 mg/dL (0-0.2); Bilirubin Total 0.4 mg/dL (0.2-1.0); NT PRO-BNP 96 pg/mL (<125); Troponin (Emerg Dept Use Only) < 0.02 ng/mL (0.0-0.045)
[2021-01-03 17:28] LABS: Magnesium 2.2 mg/dL (1.8-2.4)
--- NOTE | 2021-01-03 17:42 | RAD REPORT ---
EXAM DESCRIPTION: CT - Angio Aorta For Dissection - 01/03/2021 5:17 pm CLINICAL HISTORY: . Chest and abd pain COMPARISON: None TECHNIQUE: Computed tomography angiography of the chest, abdomen pelvis were obtained. 100 cc Isovue 370 was administered intravenously. Coronal and sagittal reconstruction were performed. MIP 3D reconstruction was performed All CT scans are performed using dose optimization technique as appropriate and may include automated exposure control or mA/KV adjustment according to patient size. FINDINGS: An aortic dissection is not seen. An aortic aneurysm is not displayed. Mild narrowing of the celiac artery. The SMA and BEST are patent . A lung consolidation is not present. A pericardial effusion is not seen. A pleural effusion is not n oted. Several small hepatic cysts are present. The 2.4 centimeter low to intermediate density lesion within the dome of the liver. Spleen, pancreas and adrenals demonstrate no significant abnormality. Renal cortical thinning may be related to prior inflammation. No evidence of diverticulitis. Small hiatal hernia IMPRESSION: Negative for an aortic dissection. 2.4 centimeter hepatic lesions does not represent a simple cyst. It has an indeterminate appearance. It is recommended that the patient have a nonemergent ultrasound for further evaluation
--- NOTE | 2021-01-03 17:42 | RAD REPORT ---
EXAM DESCRIPTION: [facility] Single View01/03/2021 5:07 pm CLINICAL HISTORY: Chest pain COMPARISON: none FINDINGS: The lungs appear clear of acute infiltrate. The heart is normal size IMPRESSION: No acute abnormalities displayed
[2021-01-03] MEDS ORDERED: MAGNES/ALUMIN/SIMET 30ML UCUP ONE (22:18)
[2021-01-03] MEDS ORDERED: LIDOCAINE VISCOUS 2% SOLN 15 ML UDC ONE (22:18)
--- NOTE | 2021-01-03 22:26 | EDPHYS ---
Physician Documentation [facility] Name: Marilee Gallegos Age: 60 yrs Sex: Female : 1960 Arrival Date: 01/03/2021 Time: 14:51 Bed 13 Private MD: ED Physician Ramón Booth HPI: 01/03 21:35 This 60 yrs old Female presents to ER via Ambulatory with complaints of Chest mh7 Pain, High Blood Pressure. 21:35 The patient or guardian reports chest pain that is located primarily in the epigastric mh7 area. 21:35 Onset: today, at 13:25. The pain radiates to back. mh7 21:35 Associated signs and symptoms: Pertinent negatives: cough, diaphoresis, dizziness, mh7 headache, lower extremity pain, lower extremity swelling, lightheadedness, nausea, near syncope, palpitations, recent travel, shortness of breath, syncope, vomiting. 21:35 The chest pain is described as causing indigestion. Duration: The patient or guardian mh7 reports a single episode, that is now resolved, that lasted an unknown period of time. Modifying factors: The symptoms are alleviated by nothing. the symptoms are aggravated by nothing. Severity of pain: At its worst the pain was moderate today, in the emergency department the pain has resolved and did so while in waiting room. She reports having epigastric area pain that radiated to the back this afternoon. She states symptoms started within an hour or so of eating a ham sandwich. She states the indigestion sensation radiating to her chest area as well. She also noted that her blood pressure was elevated. She denies any headache, fever, cough, shortness of breath, nausea, vomiting, diarrhea, dizziness, dysuria, numbness/tingling, or weakness. Her symptoms have resolved while waiting to be seen.. ROS: 21:35 Constitutional: Negative for fever, chills, and weight loss, Eyes: Negative for injury, mh7 pain, redness, and discharge, ENT: Negative for injury, pain, and discharge, Neck: Negative for injury, pain, and swelling, Respiratory: Negative for shortness of breath, cough, wheezing, and pleuritic chest pain, : Negative for injury, bleeding, discharge, and swelling, MS/Extremity: Negative for injury and deformity, Skin: Negative for injury, rash, and discoloration, Neuro: Negative for headache, weakness, numbness, tingling, and seizure, Psych: Negative for depression, anxiety, suicide ideation, homicidal ideation, and hallucinations, Allergy/Immunology: Negative for hives, rash, and allergies, Endocrine: Negative for neck swelling, polydipsia, polyuria, polyphagia, and marked weight changes, Hematologic/Lymphatic: Negative for swollen nodes, abnormal bleeding, and unusual bruising. Exam: 21:35 Constitutional: This is a well developed, well nourished patient who is awake, alert, mh7 and in no acute distress. Head/Face: Normocephalic, atraumatic. Eyes: Pupils equal round and reactive to light, extra-ocular motions intact. Lids and lashes normal. Conjunctiva and sclera are non-icteric and not injected. Cornea within normal limits. Periorbital areas with no swelling, redness, or edema. Neck: Trachea midline, no thyromegaly or masses palpated, and no cervical lymphadenopathy. Supple, full range of motion without nuchal rigidity, or vertebral point tenderness. No Meningismus. Chest/axilla: Normal chest wall appearance and motion. Nontender with no deformity. No lesions are appreciated. Cardiovascular: Regular rate and rhythm with a normal S1 and S2. No gallops, murmurs, or rubs. Normal PMI, no JVD. No pulse deficits. Respiratory: Lungs have equal breath sounds bilaterally, clear to auscultation and percussion. No rales, rhonchi or wheezes noted. No increased work of breathing, no retractions or nasal flaring. 21:35 Back: No spinal tenderness. No costovertebral tenderness. Full range of motion. Skin: Warm, dry with normal turgor. Normal color with no rashes, no lesions, and no evidence of cellulitis. MS/ Extremity: Pulses equal, no cyanosis. Neurovascular intact. Full, normal range of motion. Neuro: Awake and alert, GCS 15, oriented to person, place, time, and situation. Cranial nerves II-XII grossly intact. Motor strength 5/5 in all extremities. Sensory grossly intact. Cerebellar exam normal. Normal gait. Psych: Awake, alert, with orientation to person, place and time. Behavior, mood, and affect are within normal limits. 21:35 Abdomen/GI: Inspection: obese Bowel sounds: normal, in all quadrants, Palpation: mild abdominal tenderness, in the epigastric area, mass, is not appreciated, rebound tenderness, is not appreciated, voluntary guarding, is not appreciated, involuntary guarding, is not appreciated, no appreciated organomegaly, Rectal exam: the exam is deferred, because of patient request, Indicators: McBurney's point is not tender, Gallegos's sign is negative, Rovsing's sign is negative, Obturator sign is negative, Psoas sign is negative, Liver: no appreciated palpable abnormalities, Hernia: not appreciated. Vital Signs: 16:05 BP 146 / 76; Pulse 63; Resp 16 S; Temp 97.0(TE); Pulse Ox 99% on R/A; Weight 85.73 kg aa5 (R); Height 5 ft. 4 in. (162.56 cm) (R); Pain 07/09; 01/04 07:28 Pulse 66; Resp 16 S; Temp 98.1(O); Pulse Ox 100% on R/A; bb 01/03 16:05 Body Mass Index 32.44 (85.73 kg, 162.56 cm) aa5 MDM: 01/03 21:35 Differential diagnosis: acute myocardial infarction, acute pericarditis, anxiety, mh7 coronary artery disease chest wall pain, congestive heart failure Cholelithiasis costochondritis, esophagitis, gastritis, gastroesophageal reflux disease (GERD), pancreatitis, peptic ulcer disease, pericarditis, pneumonia, pneumothorax, thoracic aortic disection. HEART Score: History: Slightly Suspicious (0), ECG: Normal (0), Age: > 45 and < 65 years (1), Risk Factors: 1 or 2 risk factors (1), [Hypertension] Troponin: < or = 1 x Normal Limit (0), Total Score = 2. Data reviewed: vital signs, nurses notes, lab test result(s), cardiac enzymes, CBC, electrolytes, EKG, radiologic studies, CT scan, plain films. Data interpreted: Pulse oximetry: on room air is 99 %. Interpretation: normal. Counseling: I had a detailed discussion with the patient and/or guardian regarding: the historical points, exam findings, and any diagnostic results supporting the discharge/admit diagnosis, the presence of at least one elevated blood pressure reading (>120/80) during this emergency department visit, lab results, radiology results. Response to treatment: the patient's symptoms have resolved after treatment, the patient's blood pressure is in an acceptable range, mental status has returned to baseline, the patient no longer shows bradycardia, the patient is not short of breath, the patient is not tachycardic, the patient's pain is gone, the patient's temperature has normalized. Refusal of service: The patient/guardian displays adequate decision making capability and despite a detailed discussion of alternatives, benefits, risks, and consequences refuses: all lab tests. ED course: Well-appearing, no acute distress, vital signs stable, no focal neurological deficits. Denies any chest pain, shortness of breath, nausea, vomiting, or abdominal pain. Studies essentially unremarkable in the ED including cardiac enzymes and CT chest. Discussed ordering additional troponin test but patient declined any further care or evaluation requested be discharged from the ED at this time.. ED course: She indicated that she did take a chewable baby aspirin at time pain began.. 22:26 Patient medically screened. [facility] 01/03 16:15 Order name: Basic Metabolic Panel; Complete Time: :01/03 16:15 Order name: CBC with Diff; Complete Time: :01/03 16:15 Order name: LFT's; Complete Time: :01/03 16:15 Order name: Magnesium; Complete Time: :01/03 16:15 Order name: NT PRO-BNP; Complete Time: :01/03 16:15 Order name: PT-INR; Complete Time: :01/03 16:15 Order name: Troponin (emerg Dept Use Only); Complete Time: :01/03 16:15 Order name: XRAY Chest (1 view); Complete Time: :01/03 16:15 Order name: EKG; Complete Time: 16:16 01/03 16:15 Order name: Cardiac monitoring 01/03 16:15 Order name: EKG - Nurse/Tech; Complete Time: 16:01/03 16:15 Order name: IV Saline Lock; Complete Time: 16:01/03 16:16 Order name: CT Aorta for Dissection; Complete Time: :01/03 16:15 Order name: Labs collected and sent; Complete Time: 16:23 [facility] 01/03 16:15 Order name: O2 Per Protocol [facility] 01/03 16:15 Order name: O2 Sat Monitoring [facility] Administered Medications: 21:56 Drug: GI Cocktail without - (Maalox Suspension 30 ml, Lidocaine Liquid 2 % 15 bb ml) Route: PO; Disposition Summary: 01/03/21 22:26 Discharge Ordered Location: Home [facility] Problem: new [facility] Symptoms: have improved mh Condition: Stable 7 Diagnosis - Upper abdominal pain, unspecified mh7 - Essential (primary) hypertension mh7 - Chest pain, unspecified mh7 Followup: 7 - With: Private Physician - When: 1 - 2 days - Reason: Worsening of condition, Recheck today's complaints, Continuance of care, Re-evaluation by your physician Followup: [facility] - With: Chris Gloria MD - When: 1 - 2 days - Reason: Worsening of condition, Recheck today's complaints Discharge Instructions: - Discharge Summary Sheet 7 - Hypertension, Adult mh7 - Abdominal Pain, Adult, [id number] mh7 - Nonspecific Chest Pain, Adult, [id number] [facility] Forms: - Medication Reconciliation Form 7 - Thank You Letter 7 - Antibiotic Education 7 - Prescription Opioid Use [facility] Signatures: Dispatcher [employer] Jeannette Talavera, RN RN Ayah Montes RN RN aa5 Ramón Booth MD MD [facility]
--- NOTE | 2021-01-03 22:26 | ER ---
Nurse's Notes [facility] Name: Marilee Gallegos Age: 60 yrs Sex: Female : 1960 Arrival Date: 01/03/2021 Time: 14:51 Bed 13 Private MD: Diagnosis: Upper abdominal pain, unspecified;Essential (primary) hypertension;Chest pain, unspecified Presentation: 01/03 16:05 Chief complaint: Patient states: chest pain radiating to back that began today, pt c/o aa5 chest pressure at this time. Pt reports similar episode last week. 16:05 Coronavirus screen: At this time, the client does not indicate any symptoms associated aa5 with coronavirus-19. Ebola Screen: Patient negative for fever greater than or equal to 101.5 degrees Fahrenheit, and additional compatible Ebola Virus Disease symptoms. Initial Sepsis Screen: Does the patient meet any 2 criteria? No. Patient's initial sepsis screen is negative. Does the patient have a suspected source of infection? No. Patient's initial sepsis screen is negative. Risk Assessment: Do you want to hurt yourself or someone else? Patient reports no desire to harm self or others. Onset of symptoms was December 2020. 16:05 Method Of Arrival: Ambulatory aa5 16:05 Acuity: TAMIKO 3 aa5 Assessment: 01/04 07:27 Reassessment: Patient is alert, oriented x 3, equal unlabored respirations, skin bb warm/dry/pink. pt seen by this RN at discharge. Pt verbalized understanding of and agrees to plan of care discharge instructions given pt ambulated with steady gait to exit. Vital Signs: 01/03 16:05 BP 146 / 76; Pulse 63; Resp 16 S; Temp 97.0(TE); Pulse Ox 99% on R/A; Weight 85.73 kg aa5 (R); Height 5 ft. 4 in. (162.56 cm) (R); Pain 3/10; 01/04 07:28 Pulse 66; Resp 16 S; Temp 98.1(O); Pulse Ox 100% on R/A; bb 01/03 16:05 Body Mass Index 32.44 (85.73 kg, 162.56 cm) aa5 ED Course: 01/03 14:51 Patient arrived in ED. as 16:05 Arm band placed on. aa5 16:07 EKG completed in triage. Results shown to MD. [facility] 16:22 Triage completed. [facility] 16:22 Initial lab(s) drawn, by me, sent to lab. Inserted saline lock: 20 gauge in right aa5 antecubital area, using aseptic technique. Blood collected. 17:07 XRAY Chest (1 view) In Process Unspecified. EDMS 17:17 CT Aorta for Dissection In Process Unspecified. EDAL 21:30 Ramón Booth MD is Attending Physician. [facility] 22:25 Chris Gloria MD is Referral Physician. [facility] Administered Medications: 21:56 Drug: GI Cocktail without - (Maalox Suspension 30 ml, Lidocaine Liquid 2 % 15 bb ml) Route: PO; Outcome: 22:26 Discharge ordered by . [facility] 22:37 Patient left the ED. bb Signatures: Dispatcher [employer] EDMitra Middleton Brenda, RN RN bb Ayah Ball RN RN [facility] Ramón Booth MD MD [facility]
[2021-01-03 22:45] VITALS: BP 146/76; TEMP 97; O2SAT 99
--- NOTE | 2021-01-05 17:00 | EKG ---
Test Date: 2021-01-03 Test Time: 16:07:53 [employer] Apprentice: BILL MEASUREMENT RESULTS: Intervals: Rate: 61 SC: 168 QRSD: 90 QT: 438 QTc: 440 [place]: P: 70 SC: 168 QRS: 27 T: 64 INTERPRETIVE STATEMENTS: Normal sinus rhythm Normal ECG No previous ECG available for comparison Electronically Signed On 01-05-21 16:56:55 CDT by Chris Gloria
== END 2021-01-03 22:37 | disposition home or self-care (01) ==
LOC: ER 14:49
DX: I10 Essential (primary) hypertension (principal); R10.13 Epigastric pain
CPT/HCPCS: 93005; 85025; 80048; 36415; 83735; 85610; 80076; 84484; 83880; 71275; 74175; 71045; 99284; Q9967